=== PATIENT | female | born 1990 | race Asian ===

== ENCOUNTER 2021-07-11 19:53 | Emergency (ER) | payer BC ==
[2021-07-11 20:03] VITALS: BP 138/94; PULSE 98; RESP 18; TEMP 99
--- NOTE | 2021-07-11 20:24 | ED ---
Recheck HPI - General Chief Complaint: Recheck/Abnormal Lab/Rx Stated Complaint: Covid Test for border Time Seen by Provider: 07/11/21 19:56 Source: patient, RN notes reviewed Mode of arrival: ambulatory Limitations: no limitations - History of Present Illness Initial Comments: Patient is 30-year-old female that presents to emergency department needing a Covid test return to [place]. Patient is a symptom medic. She is otherwise well-appearing. She denied any chest pain shortness breath headache nausea vomiting diarrhea constipation fever fatigue chills. - Related Data Allergies Allergy/AdvReac Type Severity Reaction Status Date / Time No Known Allergies Allergy Verified 07/11/21 20:00 Review of Systems ROS Statement: Those systems with pertinent positive or pertinent negative responses have been documented in the HPI. ROS Other: All systems not noted in ROS Statement are negative. Past Medical History Past Medical History: No Reported History History of Any Multi-Drug Resistant Organisms: None Reported Past Surgical History: No Surgical Hx Reported Past Psychological History: No Psychological Hx Reported Smoking Status: Never smoker Past Alcohol Use History: None Reported Past Drug Use History: None Reported General Exam Limitations: no limitations General appearance: alert, in no apparent distress Head exam: Present: atraumatic, normocephalic, normal inspection Eye exam: Present: normal appearance, PERRL, EOMI. Absent: scleral icterus, conjunctival injection, periorbital swelling Neck exam: Present: normal inspection. Absent: tenderness, meningismus, lymphadenopathy Respiratory exam: Present: normal lung sounds bilaterally. Absent: respiratory distress, wheezes, rales, rhonchi, stridor Cardiovascular Exam: Present: regular rate, normal rhythm, normal heart sounds. Absent: systolic murmur, diastolic murmur, rubs, gallop, clicks Course Vital Signs 07/11/21 19:55 Temperature 99.0 F Pulse Rate 98 Respiratory 18 Rate Blood Pressure 138/94 O2 Sat by Pulse 96 Oximetry Medical Decision Making - Medical Decision Making 30-year-old female eating a Covid test returned care. Covid test ordered and is negative. Case discussed with Dr. Corea, patient discharge home. - Lab Data Lab Results 07/11/21 Range/Units 20:01 Coronavirus (PCR) Not Detected (Not Detectd) Disposition Clinical Impression: Encounter for screening for COVID-19 Disposition: HOME SELF-CARE Condition: Stable Additional Instructions: Please return to the Emergency Department if symptoms worsen or any other concerns. Is patient prescribed a controlled substance at d/c from ED?: No Referrals: None,Stated [Primary Care Provider] - 1-2 days Time of Disposition: 20:23
== END 2021-07-11 20:47 | disposition home or self-care (01) ==
LOC: EC 19:53
DX: Z20.822 Contact with and (suspected) exposure to COVID-19 (principal)
CPT/HCPCS: 87635; 99283